=== PATIENT | male | born 1985 | race Caucasian/White ===

== ENCOUNTER 2017-01-08 18:42 | Emergency (ER) | payer OTHER ==
[~2017-01-08] VITALS: Ht 182.9 cm; Wt 92.7 kg
[2017-01-08] MEDS ORDERED: CELE20TA PO (19:14)
[2017-01-08] MEDS ORDERED: XANA1TAB2 PO (19:14)
[2017-01-08] MEDS ORDERED: LIDOCAINE 1% MDV 20ML VIAL As Ordered ONE (20:46)
[2017-01-08] MEDS ORDERED: LIDOCAINE 1% MDV 20ML VIAL SC ONE (21:00)
[2017-01-08] MEDS ORDERED: NAPR500T PO (21:14)
[2017-01-08] MEDS ORDERED: OXYCODONE/APAP 5MG/325MG(BULK FOR ED) 1 TABLET PO ONE (21:15)
[2017-01-08 21:32] VITALS: BP 134/87
--- NOTE | 2017-01-09 07:46 | REP ---
Left hand four views: The dislocation at the index finger PIP articulation. No fracture is identified. Signed by Cheyv Joseph MD 01/09/2017 07:38 A
== END 2017-01-08 21:33 | disposition home or self-care (01) ==
LOC: M ED 18:42
DX: S63.281A Dislocation of proximal interphalangeal joint of left index finger, initial encounter (principal); W19.XXXA Unspecified fall, initial encounter; Y92.019 Unspecified place in single-family (private) house as the place of occurrence of the external cause; Y93.89 Activity, other specified; Y99.8 Other external cause status; Z79.899 Other long term (current) drug therapy